=== PATIENT | female | born 1980 | race Caucasian/White ===

== ENCOUNTER 2018-12-11 12:12 | Day surgery (SDC) | payer OTHER ==
[~2018-12-11 12:12] MED LIST: CEFAZOLIN 2 GM/50 ML (PMX) 50 ML IVPB; ONDANSETRON 4 MG INJ; ROCURONIUM 50 MG INJ; SOD CHLORIDE 0.9% 1,000 ML IV
[2018-12-11] MEDS ORDERED: CEFAZOLIN 1 GM INJ (14:20)
[2018-12-11] MEDS ORDERED: ROCURONIUM 50 MG INJ (14:20)
[2018-12-11] MEDS ORDERED: PROPOFOL 20 ML (14:20)
[2018-12-11] MEDS ORDERED: DEXAMETHASONE 4 MG/ML 5 ML INJ (14:21)
[2018-12-11] MEDS ORDERED: LIDOCAINE 2% (SDV) 5 ML INJ (14:21)
[2018-12-11] MEDS ORDERED: FENTAnyl 50 MCG/ML VIAL (14:22)
[2018-12-11] MEDS: BUPIVACAINE 0.5%/EPI (SDV) 30 ML INJ (14:29)
[2018-12-11] MEDS ORDERED: ROPIVACAINE 0.5 % 30 ML VIAL (15:10)
[2018-12-11] MEDS ORDERED: morphine 2 MG INJ IV (15:30)
[2018-12-11] MEDS ORDERED: KETOROLAC 30 MG INJ IV ×2 (15:30→16:00)
[2018-12-11] MEDS ORDERED: IBUPROFEN 600 MG TAB PO (15:30)
[2018-12-11] MEDS ORDERED: HYDROCODONE/APAP (5/325) TAB PO (15:30)
[2018-12-11] MEDS ORDERED: NEOSTIGMINE 3 MG/3 ML SYRINGE (15:40)
[2018-12-11] MEDS ORDERED: GLYCOPYRROLATE 0.4 MG INJ (15:40)
[2018-12-11] MEDS: ONDANSETRON 4 MG INJ IV (15:54)
[2018-12-11] MEDS ORDERED: HYDROmorphONE 1 MG/5 ML IV SYRINGE IV ×2 (16:00)
[2018-12-11] MEDS ORDERED: hydrALAzine 20 MG INJ IV (16:00)
[2018-12-11] MEDS ORDERED: EPHEDrine SULFATE 50 MG/5 ML SYG IV (16:00)
[2018-12-11] MEDS ORDERED: METOCLOPRAMIDE 10 MG INJ IV (16:00)
[2018-12-11] MEDS ORDERED: ONDANSETRON 4 MG INJ IV (16:00)
[2018-12-11] MEDS ORDERED: MIDAZOLAM 1 MG/ML 2 ML INJ IV (16:00)
[2018-12-11] MEDS ORDERED: ALBUTEROL 0.083% (NEB) 2.5 MG/3 ML AMP HHN (16:00)
[2018-12-11] MEDS ORDERED: DIPHENHYDRAMINE 50 MG INJ IV (16:00)
[2018-12-11] MEDS ORDERED: OXYCODONE/ACETAMINOPHEN (5/325) TAB PO ×2 (16:00)
[2018-12-11] MEDS ORDERED: FENTAnyl 50 MCG/ML VIAL IV ×3 (16:00)
[2018-12-11] MEDS ORDERED: LABETALOL HCL 20MG INJ IV (16:00)
[2018-12-11] MEDS ORDERED: MEPERIDINE 25 MG INJ IV (16:00)
[2018-12-11] MEDS: HYDROmorphONE 1 MG/5 ML IV SYRINGE IV (16:29)
[2018-12-11] MEDS: HYDROCODONE/APAP (5/325) TAB PO (18:00)
== END 2018-12-11 18:15 | disposition home or self-care (01) ==
LOC: SDS 12:12
DX: K80.10 Calculus of gallbladder with chronic cholecystitis without obstruction (principal)
CPT/HCPCS: 47562; 88304